=== PATIENT | female | born 1995 | race Caucasian/White ===

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

== ENCOUNTER 2017-01-17 10:59 | Day surgery (SDC) | payer BC ==
[~2017-01-17] VITALS: Ht 157.5 cm; Wt 70.0 kg
[2017-01-17 11:29] VITALS: BP 122/88
[2017-01-17] MEDS ORDERED: ISOPROTERENOL 0.2MG/ML, 5ML ONE (12:03)
== END 2017-01-17 12:45 ==
LOC: CACL 10:59 → EDSTATUS 12:00 → CACL 12:45
PROVIDERS: ATTEND Internal Medicine Cardiovascular Disease
DX: R55 Syncope and collapse (principal); J45.909 Unspecified asthma, uncomplicated; E03.9 Hypothyroidism, unspecified; Z88.0 Allergy status to penicillin
CPT/HCPCS: 93660

== ENCOUNTER → 2017-01-18 | Outpatient (CLI) | payer BC | END | disposition home or self-care (01) | LOC: CVU 14:19 | PROVIDERS: ATTEND Internal Medicine Cardiovascular Disease | DX: R07.9 Chest pain, unspecified (principal); R55 Syncope and collapse | CPT/HCPCS: 93306 ==